=== PATIENT | female | born 1985 | race Caucasian/White ===

== ENCOUNTER 2019-05-30 06:07 | Day surgery (SDC) | payer MEDICAID, OTHER ==
[~2019-05-30 06:07] MED LIST: LACTATED RINGERS 1,000 ML IV SCH; NEURONTIN PO NR; VERSED IV NR
[2019-05-30] MEDS ORDERED: DILAUDID IV PRN (07:30)
[2019-05-30] MEDS ORDERED: ZOFRAN IV PRN (07:30)
--- NOTE | 2019-05-30 07:30 | Anesthesia Consultation ---
Anesthesia Consult and Med Hx Date of service: 05/30/19 - Airway Anesthetic Teeth Evaluation: Chipped ROM Head & Neck: Adequate Mental/Hyoid Distance: Adequate Mallampati Class: Class II Intubation Access Assessment: Good - Pulmonary Exam CTA: Yes - Cardiac Exam Cardiac Exam: RRR - Pre-Operative Health Status ASA Pre-Surgery Classification: ASA2 Proposed Anesthetic Plan: General (Hx of migraines , she is currently having a headache at present) - Central Nervous System Hx Back Pain: Yes (Lower) Hx Psychiatric Problems: Yes - Other Systems Hx Cancer: No
--- NOTE | 2019-05-30 07:30 | Anesthesia Day of Surgery ---
Anesthesia Day of Surgery - Day of Surgery Patient Examined: Yes Patient H&P Reviewed: Yes Patient is NPO: Yes
[2019-05-30] MEDS ORDERED: DIPRIVAN 10 MG/ML IV ONE (08:33)
[2019-05-30] MEDS ORDERED: BLOXIVERZ ONE (08:33)
[2019-05-30] MEDS ORDERED: PHENYLEPHRINE/NS Syringe 1,000 MCG/10 ML IV ONE (08:33)
[2019-05-30] MEDS ORDERED: XYLOCAINE MPF 2% ONE (08:33)
[2019-05-30] MEDS ORDERED: SUBLIMAZE ONE ×2 (08:33→10:24)
[2019-05-30] MEDS ORDERED: QUELICIN ONE (08:33)
[2019-05-30] MEDS ORDERED: ROBINUL ONE (08:33)
[2019-05-30] MEDS ORDERED: ZOFRAN ONE (08:33)
[2019-05-30] MEDS ORDERED: ZEMURON IV ONE (08:33)
[2019-05-30] MEDS ORDERED: DECADRON ONE (08:33)
[2019-05-30] MEDS ORDERED: NACL 0.9% IR ONE ×2 (09:52→10:15)
[2019-05-30] MEDS ORDERED: NORCO 5/325 PO PRN (11:00)
[2019-05-30] MEDS ORDERED: TYLENOL PO PRN (11:00)
--- NOTE | 2019-05-30 11:11 | Operative Report ---
Operative Report Operative Report: 05/30/2019 Pre Op Diagnosis: Abdominal and Pelvic pains, dyspareunia Post Op Diagnosis: Same plus peritoneal adhesions. Procedures: EUA, Exploratory laparoscopy, Lysis of Adhesions, Peritoneal biopsy. Surgeon: Leander Low MD Anesthesiologist: Dominga Sullivan MD Anesthesia: GA EBL: 5cc or less. Complications: None Findings: There was a healing lesion on the left labia majus. Cervix was healthy. IUD strings were seen. On EUA, the left adnexa was full. Laparoscopically, both ovaries were healthy.The fallopian tubes were grossly normal. The left broad ligament was noted bound to the sigmoid colon in a significant way. Elsewhere within the peritoneal cavity, the bowels, omentum ,liver, gall bladder and the inferior surface of the diaphrgm were all grossly blane. Procedure in details: The patient was taken to the operating room, she was placed in the straight supine position and given general anesthesia. Patient was then put in the lithotomy position and prepped in the vulva vagina and abdomen. The drapes were placed. A timeout was done. With the go ahead from the director of undergraduate admissions, a bimanual examination of the pelvis was done. An indwelling Porter catheter was placed. The Sargis tenaculum was used to stabilize the anterior lip of the cervix. At the navel, a subumbilical stab incision was placed. The Veress needle was inserted into the peritoneal cavity, making sure to point the tip of this instrument into the free hollow of the pelvis. The Veress needle was initially aspirated and no blood was drawn. The Veress needle was then flushed through with a small quantity of sterile normal saline without any resistance. The general peritoneal cavity was thereafter insufflated with 3 L of carbon dioxide. The Veress needle was removed and through the same stab incision a 5 mm trocar was inserted into the peritoneal cavity and again making sure to point the tip of this instrument into the free hollow of the pelvis. The laparoscope was inserted and confirmed successful access to the peritoneal cavity. Under vision through the laparoscope, 2 additional 5 mm ports were placed, one for each flank. The general peritoneal cavity was examined. The findings have been reported above. The patient was then put in the Trendelenburg position. The adhesions binding the sigmoid colon to the left adnexa was carefully divided using a combination of blunt and sharp dissections via the LigaSure. After the visualized adhesions had been broken down a flap of the parietal peritoneum was excised using the LigaSure to serve as a biopsy: This was taken on the left side superior to the inguinal ligament and lateral to the inferior epigastric vascular bundle. The surgical quezada were irrigated with sterile normal saline and no active bleeding was observed. The patient was returned to the straight supine position and the injected fluid was then aspirated. Procedure was terminated. All instruments were withdrawn from the peritoneal cavity. The 3 stab incisions were sealed with Dermabond. The vagina and instruments were withdrawn. The strings of the IUD were again seen visible easily within the vagina. All sponges and instruments were accounted for. The Porter catheter was removed. There were no complications. The estimated blood loss was less than 5 mL. The patient tolerated the procedure well and was transferred to the recovery room in very good condition.
--- NOTE | 2019-05-30 12:55 | Post Anesthesia Evaluation ---
- Post Anesthesia Evaluation Patient Participated: Yes Airway Patent: Yes Stable Respiratory Function: Yes Nausea/Vomiting: No Temp > 96.8F: Yes Pain Manageable: Yes Adequeate Hydration: Yes Anesthesia Complications: No
[2019-05-30 14:01] VITALS: BP 120/80
== END 2019-05-30 06:08 | disposition home or self-care (01) ==
LOC: OR 06:07
PROVIDERS: ATTEND Obstetrics & Gynecology
DX: N94.10 Unspecified dyspareunia (principal); K66.0 Peritoneal adhesions (postprocedural) (postinfection); G43.909 Migraine, unspecified, not intractable, without status migrainosus; R10.2 Pelvic and perineal pain; R10.9 Unspecified abdominal pain; F32.9 Major depressive disorder, single episode, unspecified; Z79.899 Other long term (current) drug therapy
CPT/HCPCS: 49321; 49329; 81025; 88305; 88342; A4217; J0330; J1100; J2250; J2370; J2405; J2704; J2710; J3010; J7120